=== PATIENT | female | born 1990 | race African-American/Black ===

== ENCOUNTER 2020-05-02 18:51 | Emergency (ER) | payer MEDICAID ==
[~2020-05-02] VITALS: Ht 165.1 cm; Wt 80.7 kg
[2020-05-02 19:59] VITALS: BP 112/74
[2020-05-02] MEDS ORDERED: IBUPROFEN 600MG TABLET PO ONE (20:15)
== END 2020-05-02 21:05 | disposition home or self-care (01) ==
LOC: ER 18:51
DX: U07.1 COVID-19 (principal); B34.9 Viral infection, unspecified; Z88.0 Allergy status to penicillin
CPT/HCPCS: 71045; 81025; 87635; 87804; 93005; 99284; C9803